=== PATIENT | female | born 1965 | race Caucasian/White ===

== ENCOUNTER → 2017-04-03 | Outpatient (CLI) | payer OTHER ==
[2015-06-21 16:47] VITALS: BP 127/83
[2017-04-03] MEDS: IOHEXOL 300 MG/ML 75 ML VIAL. IV ONE (08:00)
--- NOTE | 2017-04-03 08:24 | RAD ---
CT chest with contrast 04/03/2017 Clinical indication: Cough for 2 years. History of breast carcinoma status post chemotherapy and bilateral mastectomy. Comparison: CT thoracic spine 01/11/2012. Technique: Multiple CT images were obtained of the chest following uneventful intravenous administration of 75 mL Omnipaque 300. Coronal and sagittal reformations were obtained. PQRS Compliance Statement: One or more of the following individualized dose reduction techniques were utilized for this examination: 1. Automated exposure control 2. Adjustment of the mA and/or kV according to patient size 3. Use of iterative reconstruction technique Chest findings: Prior bilateral mastectomies. No axillary, mediastinal or hilar lymphadenopathy. Heart size is normal without significant pericardial effusion. The thoracic aorta is normal in caliber. Central pulmonary arteries are patent. Central airways are patent. Mild patchy subpleural groundglass opacities in the dependent right lower lobe. No suspicious noncalcified pulmonary nodule. No pleural effusion or pneumothorax. There is mild circumferential thickening of the visualized esophagus to the level of the GE junction. There are no destructive osseous lesions. Limited images of the upper abdomen: Unremarkable. Impression: 1. Mild patchy subpleural groundglass opacities in the right lower lobe. Differential considerations include asymmetric atelectasis, pneumonitis if currently receiving chemotherapy, or early infection. 2. Prior bilateral mastectomies with no evidence of thoracic metastatic disease. 3. Mild circumferential thickening throughout the visualized course of the esophagus to the GE junction, most commonly seen with reflux esophagitis. Clinical correlation is recommended.
== END | disposition home or self-care (01) ==
LOC: CT 07:30
PROVIDERS: ATTEND Family Medicine
DX: R91.8 Other nonspecific abnormal finding of lung field (principal); R93.8 Abnormal findings on diagnostic imaging of other specified body structures; R05 Cough; R49.8 Other voice and resonance disorders; Z90.13 Acquired absence of bilateral breasts and nipples; Z85.3 Personal history of malignant neoplasm of breast; Z92.21 Personal history of antineoplastic chemotherapy
CPT/HCPCS: 71260; Q9967